=== PATIENT | female | born 1955 | race Caucasian/White ===

== ENCOUNTER 2016-04-30 12:28 | Emergency (ER) | payer BC ==
[2016-04-30 13:30] VITALS: BP 124/60
--- NOTE | 2016-04-30 13:48 | UC ---
Throat Pain/Nasal Lance HPI - HPI Summary HPI Summary: sick for 6 days with sore throat body aches, cough--grandson had strep, mother is on chemo - History of Current Complaint Chief Complaint: UCRespiratory Stated Complaint: SORE THROAT Time Seen by Provider: 04/30/16 13:24 Hx Obtained From: Patient Hx Last Menstrual Period: n/a ?: No Onset/Duration: Sudden Onset, Lasting Days - 6, Still Present Severity: Moderate Pain Intensity: 5 Pain Scale Used: 0-10 Numeric Cough: Nonproductive Associated Signs & Symptoms: Positive: Sinus Discomfort - Allergies/Home Medications Allergies/Adverse Reactions: Allergies Allergy/AdvReac Type Severity Reaction Status Date / Time Tramadol Allergy Severe seizures Verified 04/30/16 13:30 Latex Allergy Unknown Verified 04/30/16 13:30 Reaction Details PMH/Surg Hx/FS Hx/Imm Hx Previously Healthy: No Endocrine History Of: Denies: Diabetes, Thyroid Disease Cardiovascular History Of: Denies: Cardiac Disorders, Hypertension Respiratory History Of: Reports: COPD, Asthma GI/ History Of: Denies: Ulcer - Surgical History Surgical History: Yes Surgery Procedure, Year, and Place: appy. partial hysterectomy. umbilical hernia 1989 - Family History Known Family History: Positive: Other - diverticulitis Family History: cancer, diverticulitis - Social History Occupation: Retired Lives: Alone Alcohol Use: None Substance Use Type: None Smoking Status (MU): Light Every Day Tobacco Smoker Type: Cigarettes Amount Used/How Often: 1/4-1/2 PPD Length of Time of Smoking/Using Tobacco: 41 Years Have You Smoked in the Last Year: Yes Household Exposure Type: Cigarettes - Immunization History Most Recent Influenza Vaccination: [id number] Most Recent Tetanus Shot: unknown Review of Systems Constitutional: Negative Skin: Negative Eyes: Negative ENT: Sore Throat, Nasal Discharge Respiratory: Negative Cardiovascular: Negative Gastrointestinal: Negative Genitourinary: Negative Motor: Negative Neurovascular: Negative Musculoskeletal: Negative Neurological: Negative Psychological: Negative All Other Systems Reviewed And Are Negative: Yes Physical Exam Triage Information Reviewed: Yes Appearance: Well-Appearing, No Pain Distress, Well-Nourished Vital Signs: Initial Vital Signs Temp 98.9 F 04/30/16 13:25 Pulse 77 04/30/16 13:25 Resp 16 04/30/16 13:25 BP 124/60 04/30/16 13:25 Pulse Ox 95 04/30/16 13:25 Eye Exam: Normal Eyes: Positive: Conjunctiva Clear ENT Exam: Normal ENT: Positive: Normal ENT inspection, Hearing grossly normal, Pharyngeal erythema, Nasal congestion, Nasal drainage, TMs normal. Negative: Tonsillar swelling, Tonsillar exudate Dental Exam: Normal Neck exam: Normal Neck: Positive: Supple, Nontender, Enlarged Nodes @ - anterior cervical Respiratory Exam: Normal Respiratory: Positive: Chest non-tender, Lungs clear, Normal breath sounds, No respiratory distress, No accessory muscle use Cardiovascular Exam: Normal Cardiovascular: Positive: RRR, No Murmur, Pulses Normal, Brisk Capillary Refill Musculoskeletal Exam: Normal Musculoskeletal: Positive: Strength Intact, ROM Intact, No Edema Neurological Exam: Normal Neurological: Positive: Alert, Muscle Tone Normal Psychological Exam: Normal Skin Exam: Normal Diagnostics - Laboratory Diagnostic Studies Completed/Ordered: RST (-), Influenza A/B(-) Throat Pain/Nasal Course/Dx - Course Assessment/Plan: zithromax, nicotine cesation information, otc treatment for sx management folow with pcp - Differential Dx/Diagnosis Differential Diagnosis/HQI/PQRI: Influenza, Pharyngitis, Sinusitis, URI Provider Diagnoses: Bronchitis, URI Discharge - Discharge Plan Condition: Stable Disposition: HOME Prescriptions: Azithromycin TAB* [Zithromax TAB (Z-LISA) 250 mg #6 tabs] 2 tab PO .TODAY, THEN 1 DAILY #1 lisa Patient Education Materials: Acetaminophen (By mouth), Guaifenesin (By mouth), Upper Respiratory Infection (ED), Viral Syndrome (ED) Referrals: Shiv Chen PA [Primary Care Provider] - If Needed
== END 2016-04-30 14:19 | disposition home or self-care (01) ==
LOC: UCCORT 12:28
DX: J40 Bronchitis, not specified as acute or chronic (principal); J06.9 Acute upper respiratory infection, unspecified; J44.9 Chronic obstructive pulmonary disease, unspecified; J45.998 Other asthma; F17.210 Nicotine dependence, cigarettes, uncomplicated; Z88.5 Allergy status to narcotic agent; Z91.040 Latex allergy status
CPT/HCPCS: 87502; 87651; 99211; G0463

== ENCOUNTER 2016-10-13 19:18 | Emergency (ER) | payer BC ==
--- NOTE | 2016-10-13 19:19 | UC ---
Abdominal Pain Female HPI - HPI Summary HPI Summary: 61 YEAR OLD FEMALE PRESENTS WITH SEVERE LLQ PAIN. I WILL SEND HER TO THE ER TO RULE OUT DIVERTICULITIS. - History of Current Complaint Stated Complaint: LEFT SIDE PAIN Time Seen by Provider: 10/13/16 19:19 Hx Obtained From: Patient Hx Last Menstrual Period: n/a Onset/Duration: Lasting Days Severity Initially: Moderate Severity Currently: Moderate Pain Scale Used: 0-10 Numeric - 8 Location: Discrete At: LLQ Radiates to: Flank Character: Aching, Sharp, Tearing Allergies/Adverse Reactions: Allergies Allergy/AdvReac Type Severity Reaction Status Date / Time Tramadol Allergy Severe seizures Verified 10/13/16 19:28 Latex Allergy Unknown Verified 10/13/16 19:28 Reaction Details Home Medications: Home Medications Ibuprofen TAB* [Advil TAB*] 800 mg PO Q6H PRN 10/13/16 [History Confirmed ] PMH/Surg Hx/FS Hx/Imm Hx Previously Healthy: Yes - Surgical History Surgical History: Yes Surgery Procedure, Year, and Place: appy. partial hysterectomy. umbilical hernia 1989 - Family History Known Family History: Positive: Other - diverticulitis Family History: cancer, diverticulitis - Social History Alcohol Use: None Substance Use Type: None Smoking Status (MU): Light Every Day Tobacco Smoker Type: Cigarettes Amount Used/How Often: 1/4-1/2 PPD Length of Time of Smoking/Using Tobacco: 41 Years Have You Smoked in the Last Year: Yes Household Exposure Type: Cigarettes - Immunization History Most Recent Influenza Vaccination: [id number] Most Recent Tetanus Shot: unknown Review of Systems Constitutional: Negative Skin: Negative Eyes: Negative ENT: Negative Respiratory: Negative Cardiovascular: Negative Gastrointestinal: Abdominal Pain Genitourinary: Negative Motor: Negative Neurovascular: Negative Musculoskeletal: Negative Neurological: Negative Psychological: Negative All Other Systems Reviewed And Are Negative: Yes Physical Exam Triage Information Reviewed: Yes Eye Exam: Normal ENT Exam: Normal Dental Exam: Normal Neck exam: Normal Neck: Positive: 1 Respiratory Exam: Normal Cardiovascular Exam: Normal Abdomen Description: Positive: Guarding, Other: - LLQ PAIN Musculoskeletal Exam: Normal Neurological Exam: Normal Psychological Exam: Normal Skin Exam: Normal Abd Pain Female Course/Dx - Differential Dx/Diagnosis Provider Diagnoses: LLQ ABDOMINAL PAIN Discharge - Discharge Plan Condition: Stable Disposition: HOME Patient Education Materials: Diverticulitis (ED) Referrals: Shiv Chen PA [Primary Care Provider] - Additional Instructions: PLEASE GO TO ER TO RULE OUT DIVERTICULITIS.
[2016-10-13 19:37] VITALS: BP 158/87
== END 2016-10-13 19:36 | disposition home or self-care (01) ==
LOC: UCCORT 19:18
DX: R10.32 Left lower quadrant pain (principal); Z90.711 Acquired absence of uterus with remaining cervical stump; Z88.5 Allergy status to narcotic agent; Z91.040 Latex allergy status; F17.210 Nicotine dependence, cigarettes, uncomplicated
CPT/HCPCS: 99212; G0463

== ENCOUNTER 2016-12-21 09:02 | Emergency (ER) | payer BC ==
[2016-12-21 10:01] VITALS: BP 126/71
--- NOTE | 2016-12-21 10:29 | UC ---
Throat Pain/Nasal Lance HPI - HPI Summary HPI Summary: Pt presents with c/o sore throat, cough, nasal congestion and sinus pressure X 1 week. - History of Current Complaint Chief Complaint: UCRespiratory Stated Complaint: COUGH,SORE THROAT Hx Obtained From: Patient Hx Last Menstrual Period: n/a ?: No Onset/Duration: Gradual Onset Severity: Mild Cough: Nonproductive Associated Signs & Symptoms: Positive: Sinus Discomfort - Allergies/Home Medications Allergies/Adverse Reactions: Allergies Allergy/AdvReac Type Severity Reaction Status Date / Time Tramadol Allergy Severe seizures Verified 12/21/16 10:01 Latex Allergy Unknown Verified 12/21/16 10:01 Reaction Details Home Medications: Home Medications Amitriptyline TAB* [Elavil TAB*] 50 mg PO BEDTIME 12/21/16 [History Confirmed ] PMH/Surg Hx/FS Hx/Imm Hx Previously Healthy: Yes - Surgical History Surgical History: Yes Surgery Procedure, Year, and Place: appy. partial hysterectomy. umbilical hernia 1989 - Family History Known Family History: Positive: Other - diverticulitis Family History: cancer, diverticulitis - Social History Occupation: Retired Lives: With Family Alcohol Use: None Substance Use Type: None Smoking Status (MU): Light Every Day Tobacco Smoker Type: Cigarettes Amount Used/How Often: less than 10 cigs a day Length of Time of Smoking/Using Tobacco: started about age 21 Have You Smoked in the Last Year: Yes Household Exposure Type: Cigarettes - Immunization History Most Recent Influenza Vaccination: [id number] Most Recent Tetanus Shot: unknown Review of Systems Constitutional: Chills Skin: Negative Eyes: Negative ENT: Sore Throat, Sinus Congestion, Sinus Pain/Tenderness, Other - nasal congestion Respiratory: Cough Cardiovascular: Negative Gastrointestinal: Negative Genitourinary: Negative Motor: Negative Neurovascular: Negative Musculoskeletal: Negative Neurological: Negative Psychological: Negative Is Patient Immunocompromised?: No All Other Systems Reviewed And Are Negative: Yes Physical Exam Triage Information Reviewed: Yes Appearance: Ill-Appearing - mild Vital Signs: Initial Vital Signs Temp 98.6 F 12/21/16 09:57 Pulse 90 12/21/16 09:57 Resp 14 12/21/16 09:57 BP 126/71 12/21/16 09:57 Pulse Ox 99 12/21/16 09:57 Vital Signs Reviewed: Yes Eye Exam: Normal ENT Exam: Other ENT: Positive: Nasal congestion, Other: - sinus tenderness Dental Exam: Normal Neck exam: Normal Respiratory Exam: Normal Cardiovascular Exam: Normal Musculoskeletal Exam: Normal Neurological Exam: Normal Psychological Exam: Normal Skin Exam: Normal Throat Pain/Nasal Course/Dx - Differential Dx/Diagnosis Differential Diagnosis/HQI/PQRI: Influenza, Sinusitis, URI Provider Diagnoses: bronchitis Discharge - Discharge Plan Condition: Stable Disposition: HOME Prescriptions: Amoxicillin PO (*) [Amoxicillin 500 MG CAP*] 500 mg PO Q12H #14 cap Benzonatate CAP* [Tessalon 100 MG CAP*] 100 mg PO Q8H #21 cap predniSONE TAB* [Deltasone TAB*] 20 mg PO DAILY #4 tab Patient Education Materials: Acute Bronchitis (ED) Referrals: Shiv Chen PA [Primary Care Provider] - If Needed
== END 2016-12-21 10:45 | disposition home or self-care (01) ==
LOC: UCCORT 09:02
DX: J40 Bronchitis, not specified as acute or chronic (principal); F17.210 Nicotine dependence, cigarettes, uncomplicated
CPT/HCPCS: 87651; 99212; G0463

== ENCOUNTER 2017-02-08 09:27 | Emergency (ER) | payer BC ==
[2017-02-08 10:14] VITALS: BP 152/98
--- NOTE | 2017-02-08 11:16 | UC ---
Throat Pain/Nasal Lance HPI - HPI Summary HPI Summary: sore throat x 3 days cough x 3 weeks, cough is dry and harsh, + chest congestion, no fever, no chills + wheezing, + sob - History of Current Complaint Chief Complaint: UCRespiratory Stated Complaint: COUGH, ST Time Seen by Provider: 02/08/17 10:53 Hx Obtained From: Patient Hx Last Menstrual Period: n/a Onset/Duration: Gradual Onset, Lasting Days - 3, Still Present Severity: Moderate Cough: Nonproductive Associated Signs & Symptoms: Positive: Wheezing, Nasal Discharge. Negative: Dysphagia, Hoarseness, Sinus Discomfort, Fever, Vomiting, Rash - Allergies/Home Medications Allergies/Adverse Reactions: Allergies Allergy/AdvReac Type Severity Reaction Status Date / Time Tramadol Allergy Severe seizures Verified 02/08/17 10:02 Latex Allergy Unknown Verified 02/08/17 10:02 Reaction Details PMH/Surg Hx/FS Hx/Imm Hx Respiratory History: COPD - Surgical History Surgical History: Yes Surgery Procedure, Year, and Place: appy. partial hysterectomy. umbilical hernia 1989 - Family History Known Family History: Positive: Other - diverticulitis Negative: Diabetes Family History: cancer, diverticulitis - Social History Alcohol Use: None Substance Use Type: None Smoking Status (MU): Light Every Day Tobacco Smoker Type: Cigarettes Amount Used/How Often: less than 10 cigs a day Length of Time of Smoking/Using Tobacco: started about age 21 Have You Smoked in the Last Year: Yes Household Exposure Type: Cigarettes - Immunization History Most Recent Influenza Vaccination: 2017 Most Recent Tetanus Shot: unknown Review of Systems Constitutional: Negative Skin: Negative Eyes: Negative ENT: Sore Throat Respiratory: Cough Cardiovascular: Negative Is Patient Immunocompromised?: No All Other Systems Reviewed And Are Negative: Yes Physical Exam Triage Information Reviewed: Yes Appearance: Well-Appearing, No Pain Distress, Well-Nourished Vital Signs: Initial Vital Signs Temp 98.1 F 02/08/17 10:05 Pulse 83 02/08/17 10:05 Resp 18 02/08/17 10:05 BP 152/98 02/08/17 10:05 Pulse Ox 97 02/08/17 10:05 Vital Signs Reviewed: Yes Eyes: Positive: Conjunctiva Clear ENT: Positive: Normal ENT inspection, Hearing grossly normal, Pharynx normal, Nasal congestion Neck: Positive: Supple, Nontender, No Lymphadenopathy Respiratory: Positive: Chest non-tender, Lungs clear, Normal breath sounds Cardiovascular: Positive: RRR Abdominal Exam: Normal Throat Pain/Nasal Course/Dx - Differential Dx/Diagnosis Provider Diagnoses: bronchitis Discharge - Discharge Plan Condition: Stable Disposition: HOME Prescriptions: Azithromycin TAB* [Zithromax TAB (Z-LISA) 250 mg #6 tabs] 2 tab PO .TODAY, THEN 1 DAILY #1 lisa Guaifenesin-Codeine [Cheratussin AC] 10 ml PO Q8H PRN #120 ml MDD 30 ml PRN Reason: Cough Patient Education Materials: Acute Bronchitis (ED) Referrals: GERRI Angelo [Primary Care Provider] - 7 Days
== END 2017-02-08 11:25 | disposition home or self-care (01) ==
LOC: UCCORT 09:27
DX: J40 Bronchitis, not specified as acute or chronic (principal); F17.210 Nicotine dependence, cigarettes, uncomplicated
CPT/HCPCS: 99212; G0463

== ENCOUNTER 2017-08-01 15:38 | Emergency (ER) | payer BC ==
[2017-08-01 17:48] VITALS: BP 123/81
--- NOTE | 2017-08-01 18:29 | UC ---
Abdominal Pain Female HPI - HPI Summary HPI Summary: 62 yo female has had severe lower abd cramping x 2 weeks or more this has been associated with a change in bowel movements she has also had headaches that occur at night while laying down resolve by morning some nausea felt feverish and chills past 24 hours had two episodes of vomiting today - History of Current Complaint Chief Complaint: UCGI Stated Complaint: HEADACHE, VOMITING Time Seen by Provider: 08/01/17 18:04 Hx Obtained From: Patient Hx Last Menstrual Period: n/a Onset/Duration: Gradual Onset, Lasting Weeks Timing: Constant Severity Initially: Severe Severity Currently: Mild Pain Intensity: 3 Pain Scale Used: 0-10 Numeric Location: Other - lower abd Radiates: No Character: Cramping Aggravating Factor(s): Nothing Alleviating Factor(s): Nothing Associated Signs and Symptoms: Positive: Fever - rosy, Constipation, Nausea, Vomiting - today only Allergies/Adverse Reactions: Allergies Allergy/AdvReac Type Severity Reaction Status Date / Time MS Tramadol [Tramadol] Allergy Severe seizures Verified 02/08/17 10:02 MS Latex [Latex] Allergy Unknown Verified 02/08/17 10:02 Reaction Details Home Medications: Home Medications Aspirin TAB* [Aspirin 325 MG TAB*] 2 tab PO BEDTIME 08/01/17 [History Confirmed 08/01/17] Ibuprofen TAB* [Motrin TAB* 600 MG] 600 mg PO ONCE 08/01/17 [History Confirmed 08/01/17] Meloxicam(NF) [Mobic(NF)] 15 mg PO DAILY 08/01/17 [History Confirmed 08/01/17] Spiriva Inhaler DEVICE* [Tiotropium Inhaler DEVICE*] 1 inh DAILY 08/01/17 [ History Confirmed 08/01/17] PMH/Surg Hx/FS Hx/Imm Hx Previously Healthy: Yes Cardiovascular History: Hypertension Respiratory History: Asthma Neurological History: Migraine - Surgical History Surgical History: Yes Surgery Procedure, Year, and Place: appy. partial hysterectomy. umbilical hernia 1989 - Family History Known Family History: Positive: Hypertension, Other - diverticulitis Negative: Diabetes Family History: cancer, diverticulitis - Social History Alcohol Use: None Substance Use Type: None Smoking Status (MU): Heavy Every Day Tobacco Smoker Type: Cigarettes Amount Used/How Often: 1 ppd Length of Time of Smoking/Using Tobacco: started about age 21 Have You Smoked in the Last Year: Yes Household Exposure Type: Cigarettes - Immunization History Most Recent Influenza Vaccination: 2017 Most Recent Tetanus Shot: unknown Review of Systems Constitutional: Fever - rosy today, Chills - yesterday, Fatigue Skin: Negative Eyes: Negative ENT: Negative Respiratory: Negative Cardiovascular: Negative Gastrointestinal: Abdominal Pain, Vomiting - x 2 today, Nausea Genitourinary: Negative Motor: Negative Neurovascular: Negative Musculoskeletal: Negative Neurological: Headache Psychological: Negative Is Patient Immunocompromised?: No All Other Systems Reviewed And Are Negative: Yes Physical Exam Triage Information Reviewed: Yes Appearance: Well-Appearing, No Pain Distress, Well-Nourished Vital Signs: Initial Vital Signs Temp 100.2 F 08/01/17 17:40 Pulse 72 08/01/17 17:40 Resp 16 08/01/17 17:40 BP 123/81 08/01/17 17:40 Pulse Ox 99 08/01/17 17:40 Vital Signs Reviewed: Yes Eyes: Positive: Conjunctiva Clear ENT: Positive: Pharynx normal, Uvula midline. Negative: Nasal congestion, Nasal drainage, Trismus, Muffled voice, Dental tenderness Neck: Positive: Supple, Nontender, No Lymphadenopathy Respiratory: Positive: Lungs clear, Normal breath sounds, No respiratory distress Cardiovascular: Positive: RRR, No Murmur Musculoskeletal: Positive: ROM Intact, No Edema Neurological: Positive: Alert Psychological Exam: Normal Skin Exam: Normal Diagnostics - Laboratory Diagnostic Studies Completed/Ordered: ua +1 rbc - Radiology No standard instances Xray Interpretation: No Acute Changes Radiology Interpretation Completed By: Radiologist Abd Pain Female Course/Dx - Differential Dx/Diagnosis Provider Diagnoses: abdominal pain of uncertain etiology. headache of uncertain cause Discharge - Sign-Out/Discharge Documenting (check all that apply): Discharge/Admit/Transfer - Discharge Plan Condition: Stable Disposition: HOME Prescriptions: HYDROcodone/ACETAMIN 5-325 MG* [[place] 5-325 TAB*] 1 tab PO Q4H PRN #10 tab MDD 2 PRN Reason: Headache Patient Education Materials: Acute Headache (ED), Acute Abdominal Pain (DC) Referrals: Emily Mackey MD [Primary Care Provider] - As Soon As Possible Additional Instructions: STOP MOTRIN (IBUPROFEN) to er for new or worsening symptoms blood work pending see your MD in 1-2 days for recheck - Billing Disposition and Condition Condition: STABLE Disposition: Home
--- NOTE | 2017-08-01 19:18 | RAD ---
Indication: Crampy abdominal pain. CT of the abdomen and pelvis was performed without oral or IV contrast administration. Coronal and sagittal reconstructed images were obtained. The lung bases demonstrate no pleural fluid, nodules or masses. Heart is of normal size without evidence of pericardial effusion. The liver is normal in size. No focal lesions or intrahepatic duct dilatation is noted. The gallbladder demonstrates no calcified gallstones, pericholecystic fluid or wall thickening and appears to be partially contracted. Spleen is normal in size. The pancreas demonstrates no mass or pancreatic ductal dictation. The common duct is not dilated. No adrenal lesions are noted. The kidneys demonstrate no evidence of hydronephrosis. Cortical cyst is noted in the upper pole of the left kidney measuring up to 3.2 cm. Aorta demonstrates no evidence of aneurysmal dilatation. No retroperitoneal lymphadenopathy is noted. CT of the pelvis demonstrates no retroperitoneal or pelvic adenopathy. No dilated loops of bowel are noted. The urinary bladder is otherwise unremarkable. No hernias are noted. The visualized bony structures are grossly unremarkable. IMPRESSION: No evidence of obstructive uropathy is noted
[2017-08-01] MEDS ORDERED: HYDROcodone/ACETAMIN 5-325 MG* 1 TAB PO ONE (19:34)
[2017-08-02 11:18] LABS: ABS Basophils 0 10^3/ul (0-0.2); ABS Eosinophils 0.2 10^3/ul (0-0.6); ABS Lymphocytes 3.6 10^3/ul (1.0-4.8); ABS Monocytes 0.9 10^3/ul (0-0.8); ABS Neutrophils 6.6 10^3/ul (1.5-7.7); ABS Nucleated RBC 0 10^3/ul; Eosinophil % 1.8 % (0-6); Hematocrit 42 % (35-47); Hemoglobin 13.9 g/dl (12.0-16.0); Mean Corpuscular HGB Conc 33 g/dl (31-36); Mean Corpuscular Hemoglobin 30 pg (27-31); Mean Corpuscular Volume 91 fL (80-97); Mean Platelet Volume 10.3 um3 (7.4-10.4); Nucleated Red Blood Cells % 0.1; Platelet Count 209 10^3/ul (150-450); Red Blood Count 4.67 10^6/ul (4.0-5.4); Red Cell Distribution Width 14 % (10.5-15); White Blood Count 11.4 10^3/ul (3.5-10.8)
== END 2017-08-01 19:54 | disposition home or self-care (01) ==
LOC: UCCORT 15:38
DX: R10.30 Lower abdominal pain, unspecified (principal); R51 Headache; Z88.6 Allergy status to analgesic agent; Z91.040 Latex allergy status; I10 Essential (primary) hypertension; J45.909 Unspecified asthma, uncomplicated; G43.909 Migraine, unspecified, not intractable, without status migrainosus; F17.210 Nicotine dependence, cigarettes, uncomplicated
CPT/HCPCS: 36415; 74176; 81003; 85025; 85652; 99212; G0463

== ENCOUNTER 2018-08-27 16:25 | Emergency (ER) | payer BC ==
[2018-08-27 17:14] VITALS: BP 143/77
--- NOTE | 2018-08-27 17:56 | UC ---
General HPI - HPI Summary HPI Summary: Per fish culturist: "RIGHT EAR PAIN FOR ABOUT OVER A WEEK. YESTERDAY SHE FELT VERY DIZZY AND THOUGHT SHE WAS GOING TO FAINT, FELT SOB AND HAD BLURRED VISION, HANDS FELT TIGHT AND TINGLY. FATIUGE. HEADACHES ON AND OFF ESPECIALLY AT NIGHT. PT FINISHED A COURSE OF ANTBIOTIC YESTERDAY FOR STREP THROAT. NAUSEA ON AND OFF. " -here w/ her -mear syncope yeterday. she felt weak as if she was going to pass out and got herself to the ground and tried to crawl to get her husbands attention. she sent their 3 yr old grandson out to get . She admits to me that she has had mid-epigatsric chest pains. none today. last > 5 mins but < 10. resolve on it's own. CP is assoc w/ SOB. -CP sharp and dull - hard to describe. felt like heartburn mid epigastrum -b/l hands went numb yetserday. it was assoc w/ SOB but unsureif CP occured then as well. -no slurred speech. no droopy smile. -no personal hh/o heart , CVA, DM, HTN -sister w/ CVAs -quit smoking 13 d ago. -denies room spinning dizziness, no sx assoc w/ rolling over in bed or turning head suddenly. -+ memory loss worsening (may be assoc w/ topamax) - History of Current Complaint Chief Complaint: UCGeneralIllness Stated Complaint: RT EAR COMPLAINT,BLURRY VISION,NAUSEA, WEAKNESS Time Seen by Provider: 08/27/18 17:45 Hx Last Menstrual Period: n/a Pain Intensity: 0 - Allergy/Home Medications Allergies/Adverse Reactions: Allergies Allergy/AdvReac Type Severity Reaction Status Date / Time latex Allergy Unknown Unknown Verified 08/27/18 16:42 Reaction Details tramadol Allergy Unknown seizures Verified 08/27/18 16:42 Home Medications: Home Medications Aspirin 81 mg CHEW TAB* 81 mg PO DAILY 08/27/18 [History Confirmed 08/27/18] Atorvastatin* [Lipitor 10 MG*] 10 mg PO DAILY 08/27/18 [History Confirmed ] Naproxen [Naproxen 500 mg tab] 500 mg PO 08/27/18 [History] PMH/Surg Hx/FS Hx/Imm Hx Previously Healthy: Yes Endocrine History: Dyslipidemia - Surgical History Surgical History: Yes Surgery Procedure, Year, and Place: appy. partial hysterectomy. umbilical hernia 1989 - Family History Known Family History: Positive: Hypertension, Other - diverticulitis, sister w/ CVAs Negative: Diabetes Family History: cancer, diverticulitis - Social History Alcohol Use: Rare Substance Use Type: None Smoking Status (MU): Former Smoker Type: Cigarettes Amount Used/How Often: 1 ppd Length of Time of Smoking/Using Tobacco: started about age 21 Have You Smoked in the Last Year: Yes When Did the Patient Quit Smoking/Using Tobacco: TWO WEEKS AGO Household Exposure Type: Cigarettes - Immunization History Most Recent Influenza Vaccination: 2017 Most Recent Tetanus Shot: unknown Review of Systems All Other Systems Reviewed And Are Negative: Yes Constitutional: Positive: Fatigue Skin: Positive: Negative. Negative: Rash Eyes: Positive: Blurred Vision. Negative: Diplopia ENT: Positive: Ear Ache - rt - went to PCP 2 wks ago and was told it looked fine. Respiratory: Positive: Shortness Of Breath Cardiovascular: Positive: Chest Pain Gastrointestinal: Positive: Negative Genitourinary: Positive: Negative Motor: Positive: Weakness Neurovascular: Positive: Negative Musculoskeletal: Positive: Negative Neurological: Positive: Weakness, Paresthesia, Numbness Psychological: Positive: Negative Is Patient Immunocompromised?: No Physical Exam Triage Information Reviewed: Yes Appearance: Well-Appearing, No Pain Distress, Well-Nourished Vital Signs: Initial Vital Signs Temp 99 F 08/27/18 16:49 Pulse 70 08/27/18 16:49 Resp 20 08/27/18 16:49 BP 143/77 08/27/18 16:49 Pulse Ox 99 08/27/18 16:49 Eye Exam: Normal ENT Exam: Normal ENT: Positive: TMs normal, Uvula midline. Negative: Nasal congestion, Nasal drainage, TM bulging, TM dull, TM red, Hoarse voice, Sinus tenderness Neck exam: Normal Neck: Positive: Supple, Nontender, No Lymphadenopathy Respiratory Exam: Normal Respiratory: Positive: Chest non-tender, Lungs clear, Normal breath sounds, No respiratory distress, No accessory muscle use. Negative: Crackles, Rhonchi, Stridor, Wheezing Cardiovascular Exam: Normal Cardiovascular: Positive: RRR, No Murmur, Pulses Normal, Brisk Capillary Refill Abdominal Exam: Normal Abdomen Description: Positive: Nontender, Soft Bowel Sounds: Positive: Present Musculoskeletal Exam: Normal Neurological Exam: Normal Psychological Exam: Normal Skin Exam: Normal Course/Dx - Course Course Of Treatment: -63 yr old female w/ lipids w/ smoking hx (quit 2 wks ago) w/ 2-3 wks sx of progressing lightheadedness/near syncope, chest pain assoc w/ SOB and parasthesisa in hands who needs further evaluation. Agrees to go to ER. they are reliable and they reassure me they will go dirtectly to [place] (nearest ER in emergency situation) but decline ambulance trx understanding their risks. -I have told them to report chest pain and near syncope upon arrival to ER. - Differential Dx - Multi-Symptom Differential Diagnoses: Cardiac Ischemia, Other - CVA - Diagnoses Provider Diagnosis: Near syncope, Chest pain - Physician Notifications Discussed Patient Care With: Cierra iEd NP [facility] ER at 18:12 who accepts pt after explainat Discharge - Sign-Out/Discharge Documenting (check all that apply): Patient Departure All imaging exams completed and their final reports reviewed: No Studies - Discharge Plan Condition: Fair Disposition: TRANS HIGHER LVL OF CARE FAC Referrals: Shiv Chen PA [Primary Care Provider] - Additional Instructions: Please make sure to go directly to the [place] ER for evaluation. Do not stop anywhere. Do not eat or drink anything until you are cleared to do so. - Billing Disposition and Condition Condition: FAIR Disposition: Trans Higher Lvl of Care Fac
[2018-08-27] MEDS ORDERED: Aspirin 81 mg CHEW TAB* 81 MG TAB.CHEW PO ONE (18:05)
== END 2018-08-27 18:14 | disposition short-term general hospital (02) ==
LOC: UCCORT 16:25
DX: R55 Syncope and collapse (principal); R07.9 Chest pain, unspecified; E78.5 Hyperlipidemia, unspecified; Z87.891 Personal history of nicotine dependence
CPT/HCPCS: 93005; 99212; A9270-GY; G0463

== ENCOUNTER 2018-12-27 08:24 | Emergency (ER) | payer BC ==
[2018-12-27 08:44] VITALS: BP 135/73
--- NOTE | 2018-12-27 09:22 | ED ---
Respiratory - HPI Summary HPI Summary: 63 yr old with history of smoking, presents here with the complaint of coughing for over a month, worse at night and when lays flat. The patient has some post nasal drip. She has a productive cough. She is concerned she has pneumonia as others have pneumonia as well. She denies SOB. She complains of persistent sore throat. She has no other complaints. - History of Current Complaint Chief Complaint: UCGeneralIllness Stated Complaint: COUGH/ST Time Seen by Provider: 12/27/18 08:55 Pain Intensity: 8 - Allergy/Home Medications Allergies/Adverse Reactions: Allergies Allergy/AdvReac Type Severity Reaction Status Date / Time latex Allergy Unknown Unknown Verified 12/27/18 08:44 Reaction Details tramadol Allergy Unknown seizures Verified 12/27/18 08:44 PMH/Surg Hx/FS Hx/Imm Hx Endocrine/Hematology History: Denies: Hx Diabetes, Hx Thyroid Disease Cardiovascular History: Denies: Hx Hypertension Respiratory History: Reports: Hx Asthma, Hx Chronic Obstructive Pulmonary Disease (COPD) GI History: Denies: Hx Ulcer - Surgical History Surgery Procedure, Year, and Place: appy. partial hysterectomy. umbilical hernia 1989 Infectious Disease History: No Infectious Disease History: Denies: Hx Clostridium Difficile, Hx Hepatitis, Hx Human Immunodeficiency Virus (HIV), Hx of Known/Suspected MRSA, Hx Shingles, Hx Tuberculosis, Hx Known/ Suspected VRE, Hx Known/Suspected VRSA, History Other Infectious Disease, Traveled Outside the [place] in Last 30 Days - Family History Known Family History: Positive: Hypertension, Other - diverticulitis, sister w/ CVAs Negative: Diabetes Family History: cancer, diverticulitis - Social History Occupation: Employed Full-time Alcohol Use: None Substance Use Type: Reports: None Smoking Status (MU): Light Every Day Tobacco Smoker Type: Cigarettes Amount Used/How Often: <1ppd Length of Time of Smoking/Using Tobacco: started about age 21 Have You Smoked in the Last Year: Yes Review of Systems Constitutional: Negative Positive: Sore Throat, Nasal Discharge Positive: Cough All Other Systems Reviewed And Are Negative: Yes Physical Exam Triage Information Reviewed: Yes Vital Signs On Initial Exam: Initial Vitals Temp Pulse Resp BP Pulse Ox 98.3 F 66 18 135/73 98 12/27/18 08:34 12/27/18 08:34 12/27/18 08:34 12/27/18 08:34 12/27/18 08:34 Vital Signs Reviewed: Yes Appearance: Positive: Well-Appearing, No Pain Distress Skin: Positive: Warm, Skin Color Reflects Adequate Perfusion Head/Face: Positive: Normal Head/Face Inspection Eyes: Positive: EOMI ENT: Positive: Pharyngeal erythema, Nasal congestion, Nasal drainage, TMs normal Neck: Positive: Nontender Respiratory/Lung Sounds: Positive: Clear to Auscultation, Breath Sounds Present Cardiovascular: Positive: RRR. Negative: Murmur Abdomen Description: Negative: Distended Musculoskeletal: Negative: Strength/ROM Intact Neurological: Positive: Sensory/Motor Intact, Alert, Oriented to Person Place, Time, CN Intact II-III, Normal Gait, Speech Normal Psychiatric: Positive: Normal Diagnostics - Vital Signs Vital Signs Temp Pulse Resp BP Pulse Ox 12/27/18 08:34 98.3 F 66 18 135/73 98 - Laboratory Lab Results: Lab Results 12/27/18 Range/Units 09:05 Group A Strep Rapid Negative (Negative) Lab Statement: Any lab studies that have been ordered have been reviewed, and results considered in the medical decision making process. Disposition - Course Course Of Treatment: 63 yr old with negative chest xray. She has post nasal drip with cough worse at night. WIll cover her with Augmentin for bacterial sinusitis. FU with PMD. - Diagnoses Provider Diagnoses: Bacterial sinusitis Discharge ED - Sign-Out/Discharge Documenting (check all that apply): Patient Departure All imaging exams completed and their final reports reviewed: No Studies - Discharge Plan Condition: Good Disposition: HOME Prescriptions: Amoxicillin/Clavulanate TAB* [Augmentin TAB 875*] 875 mg PO BID #20 tab Benzonatate CAP* [Tessalon 100 MG CAP*] 100 mg PO TID PRN #14 cap PRN Reason: Cough predniSONE TAB* [Deltasone 20 MG TAB*] 40 mg PO DAILY #8 tab Patient Education Materials: Sinusitis (ED), Acute Bronchitis (ED) Referrals: Shiv Chen PA [Primary Care Provider] - 2 Days - Billing Disposition and Condition Condition: GOOD Disposition: Home
== END 2018-12-27 09:31 | disposition home or self-care (01) ==
LOC: UCCORT 08:24
DX: J32.9 Chronic sinusitis, unspecified (principal); B96.89 Other specified bacterial agents as the cause of diseases classified elsewhere; J44.9 Chronic obstructive pulmonary disease, unspecified; R05 Cough; J02.9 Acute pharyngitis, unspecified; F17.210 Nicotine dependence, cigarettes, uncomplicated; Z91.040 Latex allergy status; Z88.5 Allergy status to narcotic agent
CPT/HCPCS: 71046; 87651; 99212; G0463

== ENCOUNTER 2019-01-21 10:17 | Emergency (ER) | payer BC ==
--- OUTSIDE RECORDS SUMMARY | 2019-01-21 10:25 | XMS REPORT | Continuity of Care Document ---
:1955 External Reference #:[id number] Author Name Remi Nation M.D. Address [address] [place] [address] Care Team Providers Name Role Phone Charanjit Chen PA - Physician Care Team Information Gravel Weigher [phone] Retail Store Associate Emily Mackey MD - Family Care Team Information Gravel Weigher [phone] Medicine Problems Active Problems Provider Date Chronic obstructive lung disease Remi Nation M.D. Onset: 10/31/2016 Gastroesophageal reflux disease Remi Nation M.D. Onset: 10/31/2016 Kidney stone Remi Natoin M.D. Onset: 10/31/2016 Female stress incontinence Remi Nation M.D. Onset: 10/31/2016 Ureteric stone Remi Nation M.D. Onset: 12/01/2016 Arthralgia of the pelvic region and thigh Alfredo Khoury M.D. Onset: 09/2017 Constipation Pineda Ribeiro MD Onset: 10/11/2017 Benign neoplasm of colon Pineda Ribeiro MD Onset: 10/11/2017 Pile easily reducible Pineda Ribeiro MD Onset: 10/11/2017 Mixed urinary incontinence Remi Nation M.D. Onset: 01/13/2019 Chest pain Onset: 08/15/2016 Radicular pain Onset: 04/05/2015 Cough Onset: 05/12/2015 Sore throat symptom Onset: 05/12/2015 Abdominal pain Onset: 05/12/2015 Dizziness Onset: 08/15/2016 Dysuria Onset: 08/15/2016 Social History Type Date Description Comments Sex Unknown Tobacco Use Start: Unknown Current Cigarette Smoker 5-10 Cigarettes Daily Smokeless Tobacco Never Used Smokeless Tobacco ETOH Use Denies alcohol use Tobacco Use Start: Unknown Patient is a current 10 or less a day smoker, smokes every day Recreational Drug Use Denies Drug Use Smoking Status Reviewed: 09/18/17 Patient is a current 10 or less a day smoker, smokes every day Allergies, Adverse Reactions, Alerts Active Allergies Reaction Severity Comments Date Dog Dander 01/12/2014 Codeine 01/12/2014 Tramadol 01/12/2014 Latex 01/12/2014 Medications Active Medications SIG Qnty Indications Ordering Date Provider Myrbetriq 1 by mouth every 30tabs Chapis, 01/13/2019 50mg day Abhishek Khalil Tablets ER 24HR Lisinopril 1 by mouth every 30tabs I10 Davidenko, 09/12/2018 10mg day Preston Gonzalez M.D., Tablets FACC Naproxen take one tablet 60tabs Quintin, 09/18/2017 500mg by mouth twice a MD Pineda Tablets day Miralax 1 tablespoon with 1020units K59.00 Quintin, 09/18/2017 3350NF Powder large glass of MD Pineda water every day Topiramate 1 tab at hs 120tabs Brodie Posadas MD 08/23/2016 25mg Tablets Topiramate take one tablet Unknown 100mg by mouth once a Tablets day Esomeprazole 1 by mouth every Unknown Magnesium day 40mg Capsules DR Roxanne HFA 1-2 puffs every Unknown 4-6 hours as 108(90Base) mcg/Act needed Aerosol Spiriva Handihaler inhale the Unknown contents of 1 18mcg Capsules capsule via handihaler once daily Lipitor 1 by mouth every Unknown 20mg Tablets day Immunizations Description No Information Available Vital Signs Date Vital Result Comment 01/13/2019 10:22am BP Systolic Sitting Left Arm 121 mmHg BP Diastolic Sitting Left Arm 75 mmHg Body Temperature 99.3 F Heart Rate 84 /min Respiratory Rate 20 /min Height 66 inches 5'6" Weight 175.38 lb BMI (Body Mass Index) 28.3 kg/m2 BSA (Body Surface Area) 1.89 m2 Arbon body weight in kilograms 59 kg O2 % BldC Oximetry 97 % Ra Pain Level 0 09/12/2018 2:02pm BP Systolic Sitting Resting Right Arm 138 mmHg BP Diastolic Sitting Resting Right Arm 90 mmHg Respiratory Rate 16 /min Height 66 inches 5'6" Weight 182.00 lb BMI (Body Mass Index) 29.4 kg/m2 BSA (Body Surface Area) 1.92 m2 Arbon body weight in kilograms 59 kg Results Test Acquired Date Facility Test Result H/L Range Note Basic Metabolic 09/17/2018 [facility] Glucose 104 mg/dL Normal 74-106 [address] [place] [address] [phone] BUN 14 mg/dL Normal 7-18 Creatinine 0.9 mg/dL Normal 0.6-1.3 Glom Filtration Rate, Estimate >60 mL/min >60 If >60 mL/min >60 2 BUN/Creat 15.5 ratio Sodium 143 mmol/L Normal 136-145 Potassium 3.6 mmol/L Normal 3.5-5.1 Chloride 112 mmol/L High 98-107 Carbon Dioxide 26 mmol/L Normal 21-32 Anion Gap 5 mEq/L Low 8-16 Calcium 8.5 mg/dL Normal 8.5-10.1 Laboratory test 09/17/2018 [facility] Magnesium 2.3 mg/dL Normal 1.8-2.4 [address] [place] [address] [phone] 1 I10 2 Note: Persistent reduction for 3 months or more in an eGFR <60 mL/min/1.73 m2 defines CKD. Patients with eGFR values >/=60 mL/min/1.73 m2 may also have CKD if evidence of persistent proteinuria is present. The original MDRD equation for estimated GFR is not valid for patients less than 18 years of age. Additional information may be found at www.kdoqi.org. Procedures Date Code Description Status 10/07/2018 40250 Stress Test Interpre And Report Only Completed 10/07/2018 77452 Stress Test Physician Super Only Completed 10/07/2018 06111 Myocardial Imaging Tomographic Multiple Study AT Rest Completed Or Stress 09/12/2018 98690 EKG-Tracing And Report Completed 09/26/2017 60024063 Colonoscopy Completed 08/13/2014 [id number] Colonoscopy Completed 07/20/2011 [id number] Colonoscopy Completed 06/15/2003 [id number] Colonoscopy Completed Medical Devices Description No Information Available Encounters Type Date Location Provider Dx Diagnosis Office Visit 01/13/2019 10:15a Urology Remi Nation, N39.46 Mixed incontinence Apolinar.Marina N20.0 Calculus of kidney Office Visit 09/12/2018 2:00p Cardiology Office Georgie, I10 Essential ( primary) Bibilyss Yeimy, PA hypertension R06.02 Shortness of breath G47.33 Obstructive sleep apnea (adult) (pediatric) R42 Dizziness and giddiness F17.210 Nicotine dependence, cigarettes, uncomplicated Assessments Date Code Description Provider 01/13/2019 N39.46 Mixed incontinence Remi Nation M.D. 01/13/2019 N20.0 Calculus of kidney Remi Nation M.D. 10/07/2018 R06.02 Shortness of breath Preston Nieto M.D., [facility] 09/12/2018 I10 Essential (primary) hypertension Yandy Jacquess B., PA 09/12/2018 R06.02 Shortness of breath Ynady Jacquess Jovanny., PA 09/12/2018 G47.33 Obstructive sleep apnea (adult) Yandy Jacquess Jovanny., PA (pediatric) 09/12/2018 R42 Dizziness and giddiness Yandy Jacquess Jovanny., PA 09/12/2018 F17.210 Nicotine dependence, cigarettes, Izabella Jacques., PA uncomplicated 08/28/2018 R07.9 Chest pain, unspecified Cadet, OLGA Pal 08/28/2018 R07.9 Chest pain, unspecified Preston Nieto M.D., [facility] 08/28/2018 R55 Syncope and collapse [place] FNP 08/28/2018 R55 Syncope and collapse Preston Nieto M.D., [facility] 08/28/2018 J44.9 Chronic obstructive pulmonary Cadet, OLGA Pal disease, unspecified 08/28/2018 J44.9 Chronic obstructive pulmonary Davidenko, Preston M., M.D., disease, unspecified FACC 08/28/2018 F17.210 Nicotine dependence, cigarettes, CadDemarco luevano, [employer] uncomplicated 08/28/2018 F17.210 Nicotine dependence, cigarettes, Preston Nieto M.D., uncomplicated FACC 08/27/2018 R55 Syncope and collapse Luis Manuel Pierre MD 08/27/2018 R07.9 Chest pain, unspecified Luis Manuel Pierre MD 08/27/2018 J44.9 Chronic obstructive pulmonary Luis Manuel Pierre MD disease, unspecified 08/27/2018 F17.210 Nicotine dependence, cigarettes, Luis Manuel Pierre MD uncomplicated Plan of Treatment Future Appointment(s):02/10/2019 9:00 am - Remi Nation M.D. at [id number] - Remi Nation M.D.N39.46 Mixed incontinenceComments:Discussed with the patient mixed incontinence and will plan to do a pelvic exam at next visit when the patient has a full bladder to assess for stress incontinence. For now we discussed behavioral modifications such as timed voiding and double voiding and limiting coffee intake. We also discussed doing a trial of Myrbetriq to see if we could improve on the urge incontinence. She'll follow-up with me in 3 [id number] Calculus of kidneyComments:This patient has a history of kidney stones and recent CT scan that I reviewed shows left stone. I recommend the patient to come off Topamax if possible as most likely this could be contributing to her kidney stone disease. Functional Status Description No Information Available Mental Status Description No Information Available Referrals Description No Information Available
[2019-01-21 10:40] VITALS: BP 103/67
--- NOTE | 2019-01-21 11:08 | UC ---
Respiratory Complaint HPI - HPI Summary HPI Summary: cough x 4 weeks cough is dry , worse with deep breathing, nothing is making it better was treated for bronchitis with antibiotics/ prednisone about 2 weeks ago not getting better denies any fever, no chills, + pnd, no sob, no wheezing no chest pain , no GERD, no calf pain, no recent travel - History of Current Complaint Chief Complaint: UCRespiratory Stated Complaint: COUGH SORE THROAT URINARY Time Seen by Provider: 01/21/19 10:29 Hx Obtained From: Patient Hx Last Menstrual Period: n/a Onset/Duration: Gradual Onset, Lasting Weeks - 4, Still Present Timing: Constant Severity Initially: Moderate Severity Currently: Moderate Pain Intensity: 8 Character: Cough: Nonproductive Aggravating Factors: Exertion, Deep Breaths Alleviating Factors: Nothing Associated Signs And Symptoms: Negative: Dyspnea, Fever, Chills, Pleuritic Chest Pain, Wheezing, Hemoptysis, Dizziness, Calf Pain, Calf Swelling, Edema, URI, Nasal Congestion, Hoarseness, Sinus Discomfort - Allergies/Home Medications Allergies/Adverse Reactions: Allergies Allergy/AdvReac Type Severity Reaction Status Date / Time latex Allergy Unknown Unknown Verified 01/21/19 10:34 Reaction Details tramadol Allergy Unknown seizures Verified 01/21/19 10:34 Home Medications: Home Medications Bladder Pill "Oval ... Brown" 1 tab PO DAILY 01/21/19 [History Confirmed ] PMH/Surg Hx/FS Hx/Imm Hx - Additional Past Medical History Additional PMH: Dyslipidemia, GERD Respiratory History: COPD, Asthma - Surgical History Surgical History: Yes Surgery Procedure, Year, and Place: appy. partial hysterectomy. umbilical hernia 1989 - Family History Known Family History: Positive: Hypertension, Other - diverticulitis, sister w/ CVAs Negative: Diabetes Family History: cancer, diverticulitis - Social History Alcohol Use: None Substance Use Type: None Smoking Status (MU): Heavy Every Day Tobacco Smoker Type: Cigarettes Amount Used/How Often: ~1/4 PPD Length of Time of Smoking/Using Tobacco: Since Age 21 Have You Smoked in the Last Year: Yes When Did the Patient Quit Smoking/Using Tobacco: TWO WEEKS AGO Household Exposure Type: Cigarettes - Immunization History Most Recent Influenza Vaccination: 2017 Most Recent Tetanus Shot: unknown Review of Systems All Other Systems Reviewed And Are Negative: Yes Constitutional: Positive: Negative. Negative: Fever, Chills, Fatigue Skin: Positive: Negative Eyes: Positive: Negative ENT: Positive: Sore Throat. Negative: Nasal Discharge, Sinus Congestion, Sinus Pain/Tenderness Respiratory: Positive: Cough. Negative: Shortness Of Breath Cardiovascular: Positive: Negative Is Patient Immunocompromised?: No Physical Exam Triage Information Reviewed: Yes Appearance: Well-Appearing, No Pain Distress, Well-Nourished Vital Signs: Initial Vital Signs Temp 98.6 F 01/21/19 10:28 Pulse 74 01/21/19 10:28 Resp 14 01/21/19 10:28 BP 103/67 01/21/19 10:28 Pulse Ox 100 01/21/19 10:28 Vital Signs Reviewed: Yes Eye Exam: Normal Eyes: Positive: Conjunctiva Clear ENT Exam: Normal ENT: Positive: Normal ENT inspection, Hearing grossly normal, Pharynx normal Neck exam: Normal Neck: Positive: Supple, Nontender, No Lymphadenopathy Respiratory: Positive: Chest non-tender, Lungs clear, Normal breath sounds Cardiovascular: Positive: RRR, No Murmur, Pulses Normal Abdominal Exam: Normal Abdomen Description: Positive: Nontender, Soft Bowel Sounds: Positive: Present Musculoskeletal Exam: Normal Skin Exam: Normal Respiratory Course/Dx - Differential Dx/Diagnosis Provider Diagnosis: Bronchitis Discharge ED - Sign-Out/Discharge Documenting (check all that apply): Patient Departure All imaging exams completed and their final reports reviewed: No Studies - Discharge Plan Condition: Stable Disposition: HOME Prescriptions: Fluticasone NASAL SPRAY 50MCG* [Flonase NASAL SPRAY 50MCG*] 2 spray BOTH NARES DAILY #1 btl guaiFENesin/CODIENE 100mg/10mg [Robitussin AC 100Mg/10Mg in 5 ml] 10 ml PO Q8H PRN #120 ml MDD 30 ml PRN Reason: Cough Patient Education Materials: Chronic Cough (ED) Referrals: Shiv Chen PA [Primary Care Provider] - 2 Weeks - Billing Disposition and Condition Condition: STABLE Disposition: Home
[2019-01-21 16:15] LABS: Hepatitis C Antibody Negative (Negative)
== END 2019-01-21 11:13 | disposition home or self-care (01) ==
LOC: UCCORT 10:17
DX: J44.9 Chronic obstructive pulmonary disease, unspecified (principal); J02.9 Acute pharyngitis, unspecified; F17.210 Nicotine dependence, cigarettes, uncomplicated; Z91.040 Latex allergy status; Z88.8 Allergy status to other drugs, medicaments and biological substances
CPT/HCPCS: 36415; 86803; 87651; 99212; G0463

== ENCOUNTER 2019-03-02 07:38 | Emergency (ER) | payer BC, OTHER ==
--- OUTSIDE RECORDS SUMMARY | 2019-03-02 07:47 | XMS REPORT | Continuity of Care Document ---
:1955 External Reference #:[id number] Author Name Remi Nation M.D. Address [address] [facility] [address] [place] [address] Care Team Providers Name Role Phone Charanjit Chen PA - Physician Care Team Information Staff Submarine Warfare Officer [phone] Hadoop Analyst Emily Mackey MD - Family Care Team Information Staff Submarine Warfare Officer Medicine Problems Active Problems Provider Date Chronic obstructive lung disease Remi Nation M.D. Onset: 10/31/2016 Gastroesophageal reflux disease Remi Nation M.D. Onset: 10/31/2016 Kidney stone Remi Nation M.D. Onset: 10/31/2016 Female stress incontinence Remi [...] Use Denies Drug Use Smoking Status Reviewed: 02/05/19 Patient is a current 10 or less [...] every Unknown Magnesium day 40mg Capsules DR Oliveira HFA 1-2 puffs every Unknown 4-6 hours as 108(90Base) mcg/Act needed Aerosol Spiriva Handihaler inhale the Unknown contents of 1 18mcg Capsules capsule via handihaler once daily Lipitor 1 by mouth every Unknown 20mg Tablets day Immunizations Description No Information Available Vital Signs Date Vital Result Comment 02/03/2019 1:25pm BP Systolic 156 mmHg BP Diastolic 95 mmHg Body Temperature 98.3 F Heart Rate 75 /min Respiratory Rate 19 /min Height 66 inches 5'6" Weight 177.00 lb Pain Level 4 catch in her left side BMI (Body Mass Index) 28.6 kg/m2 BSA (Body Surface Area) 1.90 m2 [place] body weight in kilograms 59 kg 01/13/2019 10:22am BP Systolic Sitting Left Arm 121 mmHg BP Diastolic Sitting Left Arm 75 mmHg Body Temperature 99.3 F Heart Rate 84 /min Respiratory Rate 20 /min Height 66 inches 5'6" Weight 175.38 lb Pain Level 0 BMI (Body Mass Index) 28.3 kg/m2 BSA (Body Surface Area) 1.89 m2 [place] body weight in kilograms 59 kg O2 % BldC Oximetry 97 % Ra Results Test Acquired Date Facility Test Result H/L Range Note Urine Dipstick 02/03/2019 [facility] Ua Color yellow Yellow Ua Clarity clear Clear Ua Leuko neg Negative Ua Nitrite neg Negative Ua Urobilinogen 0.2 0.2 - 1.0 E.U./dL Ua Protein neg Negative Ua PH 6.0 Low 6.5-7.5 Ua Blood neg Negative Ua Specific [place] 1.010 1.010-1.030 Ua Ketones neg Negative Ua Bilirubin neg Negative Ua Glucose neg Negative Urine Culture 01/13/2019 [facility] Urine Culture MIXED URETHRAL F 1, [address] <SEE NOTE> [place] [address] [phone] Quantity 10,000 - 50,000 <SEE NOTE> 3 Ua RFX Micro & Culture 01/13/2019 [facility] Urine Color YELLOW Yellow II [address] [place] [address] [phone] Urine Clarity CLEAR Clear Urine Glucose - Dipstick NEGATIVE mg/dL Negative Urine Bilirubin - Dipstick NEGATIVE Negative Urine Ketone NEGATIVE mg/dL Negative Urine Specific [place] 1.015 Normal 1.010-1.030 Urine Blood SMALL Abnormal Negative Urine PH 6.0 Low 6.5-7.5 Urine Protein - Dipstick NEGATIVE mg/dL Negative Urine Urobilinogen - Dipstick 0.2 E.U./dL Normal 0.2-1.0 Urine Nitrite - Dipstick NEGATIVE Negative Urine Leuk Esterase TRACE Abnormal Negative Source: URINE, CLEAN CAT <SEE NOTE> 4 Urine RBC 5-10 rbc/hpf High 0-2 Urine WBC 2-5 wbc/hpf 0-7 Urine Epithelial Cells FEW /lpf None Seen Basic Metabolic Panel 09/17/2018 [facility] Glucose 104 mg/dL Normal 74-106 5 [address] [place] [address] [phone] BUN 14 mg/dL Normal 7-18 Creatinine 0.9 mg/dL Normal 0.6-1.3 Glom Filtration Rate, Estimate >60 mL/min >60 If >60 mL/min >60 6 BUN/Creat 15.5 ratio Sodium 143 mmol/L Normal 136-145 Potassium 3.6 mmol/L Normal 3.5-5.1 Chloride 112 mmol/L High 98-107 Carbon Dioxide 26 mmol/L Normal 21-32 Anion Gap 5 mEq/L Low 8-16 Calcium 8.5 mg/dL Normal 8.5-10.1 Laboratory test 09/17/2018 [facility] Magnesium 2.3 mg/dL Normal 1.8-2.4 finding [address] [place] [address] [phone] 1 N39.0 2 MIXED URETHRAL [place] 3 10,000 - 50,000 CFU/mL 4 URINE, CLEAN CATCH 5 I10 6 Note: Persistent reduction for 3 months or [...] at [email or web address]. Procedures Date Code Description Status 02/03/2019 53472 Cystoscopy Completed 01/13/2019 78624 Measurement Post Voiding Residual Urine By Completed Ultrasound,Non-Imaging 10/07/2018 31233 Stress Test Interpre And Report Only Completed 10/07/2018 63405 Stress Test Physician Super Only Completed 10/07/2018 82744 Myocardial Imaging Tomographic Multiple Study AT Rest Completed Or Stress 09/12/2018 07816 EKG-Tracing And Report Completed 09/26/2017 [id number] Colonoscopy Completed 08/13/2014 [id number] Colonoscopy Completed 07/20/2011 [id number] Colonoscopy Completed 06/15/2003 [id number] Colonoscopy Completed Medical Devices Description No Information Available Encounters Type Date Location Provider Dx Diagnosis Office Visit 02/03/2019 1:15p Urology Remi Nation, N39.46 Mixed incontinence M.DLynn Office Visit 01/13/2019 10:15a Urology ChapisRemi tom, N39.46 Mixed incontinence Apolinar.Marina N20.0 Calculus of kidney Office Visit 09/12/2018 2:00p Cardiology Office Georgie, I10 Essential ( primary) Izabella Gaffney, PA hypertension R06.02 Shortness of breath G47.33 Obstructive sleep apnea (adult) (pediatric) R42 Dizziness and giddiness F17.210 Nicotine dependence, cigarettes, uncomplicated Assessments Date Code Description Provider 02/03/2019 N39.46 Mixed incontinence Remi Nation M.D. 01/13/2019 N39.46 Mixed incontinence Remi Nation M.D. 01/13/2019 N20.0 Calculus of kidney Remi Nation M.D. 10/07/2018 R06.02 Shortness of breath Preston Nieto M.D., [facility] 09/12/2018 I10 Essential (primary) hypertension Izabella Jacques, PA 09/12/2018 R06.02 Shortness of breath Izabella Jacques., PA 09/12/2018 G47.33 Obstructive sleep apnea (adult) Izabella Jacques, PA (pediatric) 09/12/2018 R42 Dizziness and giddiness Izabella Jacques, PA 09/12/2018 F17.210 Nicotine dependence, cigarettes, Yandy Jacquess B., PA uncomplicated 08/28/2018 R07.9 Chest pain, unspecified Cadet, SIN PalP 08/28/2018 R07.9 Chest pain, unspecified Preston Nieto M.D., [facility] 08/28/2018 R55 Syncope and collapse Phu, Demarco MOVIE WRITER 08/28/2018 R55 Syncope and collapse Preston Nieto M.D., [facility] 08/28/2018 J44.9 Chronic obstructive pulmonary Cadet, Demarco, MOVIE WRITER disease, unspecified 08/28/2018 J44.9 Chronic obstructive pulmonary Preston Nieto M.D., disease, unspecified [facility] 08/28/2018 F17.210 Nicotine dependence, cigarettes, Cadet, Demarco, MOVIE WRITER uncomplicated 08/28/2018 F17.210 Nicotine dependence, cigarettes, Preston Nieto M.D., uncomplicated [facility] 08/27/2018 R55 Syncope and collapse Luis Manuel Pierre MD 08/27/2018 R07.9 Chest pain, unspecified Luis Manuel Pierre MD 08/27/2018 J44.9 Chronic obstructive pulmonary Luis Manuel Pierre MD disease, unspecified 08/27/2018 F17.210 Nicotine dependence, cigarettes, Luis Manuel Pierre MD uncomplicated Plan of Treatment No Information Available Functional Status Description No Information Available Mental Status Description No Information Available Referrals Description No Information Available
[2019-03-02 07:55] VITALS: BP 122/89
[2019-03-02] MEDS ORDERED: Ketorolac *IM* INJ* 60 MG/2 ML VIAL IM ONE (08:05)
[2019-03-02] MEDS ORDERED: Amoxicillin PO (*) 500 MG CAP PO ONE (08:05)
[2019-03-02] MEDS ORDERED: DOXYcycline CAP(*) 100 MG PO ONE (08:10)
--- NOTE | 2019-03-02 08:11 | UC ---
Headache HPI - HPI Summary HPI Summary: C/O frontal GAMBLE x 7 days with nausea and photophobia. Sinus headache with chills. Cough and sore throat. H/O allergies. - History Of Current Complaint Chief Complaint: UCRespiratory Stated Complaint: HEADACHE SINUS SORE THROAT COUGH Hx Obtained From: Patient Hx Last Menstrual Period: n/a Onset/Duration: Gradual Onset, Lasting Weeks - 1, Still Present Onset Of Symptoms: Gradual Initially Headache Was: Moderate, Severe Pain Intensity: 7 Timing: Constant Character: Dull, Throbbing, Pressure Location of Headache: Frontal, Occipital Aggravating Factor(s): Bright Lights Allevating Factor(s): Medication - minimal improvement with ibuprofen, Position Change Associated Signs And Symptoms: Positive: Nausea, Sinus Pressure, Fever. Negative: Seizure, Neck Pain, Neck Stiffness, Decreased LOC - Risk Factors SAH Risk Factors: Negative Meningitis Risk Factors: Negative SDH Risk Factors: Negative - Allergies/Home Medications Allergies/Adverse Reactions: Allergies Allergy/AdvReac Type Severity Reaction Status Date / Time latex Allergy Unknown Unknown Verified 03/02/19 07:52 Reaction Details tramadol Allergy Unknown seizures Verified 03/02/19 07:52 PMH/Surg Hx/FS Hx/Imm Hx Endocrine History: Dyslipidemia Respiratory History: COPD, Asthma GI/ History: Gastroesophageal Reflux - Surgical History Surgical History: Yes Surgery Procedure, Year, and Place: appy. partial hysterectomy. umbilical hernia 1989 - Family History Known Family History: Positive: Cardiac Disease, Hypertension, Diabetes, Other - diverticulitis, sister w/ CVAs Family History: cancer, diverticulitis - Social History Occupation: Retired Lives: With Family Alcohol Use: None Substance Use Type: None Smoking Status (MU): Light Every Day Tobacco Smoker Type: Cigarettes Amount Used/How Often: ~1/4 PPD Length of Time of Smoking/Using Tobacco: Since Age 21 Have You Smoked in the Last Year: Yes When Did the Patient Quit Smoking/Using Tobacco: TWO WEEKS AGO Household Exposure Type: Cigarettes Cessation Counseling: Patient Advised to Stop - Immunization History Most Recent Influenza Vaccination: 2017 Most Recent Tetanus Shot: unknown Review of Systems All Other Systems Reviewed And Are Negative: Yes Constitutional: Positive: Fever, Chills, Fatigue Eyes: Positive: Photophobia ENT: Positive: Sore Throat, Nasal Discharge, Sinus Congestion, Sinus Pain/ Tenderness Respiratory: Positive: Shortness Of Breath - wheezing, Cough Neurological: Positive: Headache Is Patient Immunocompromised?: No Physical Exam Triage Information Reviewed: Yes Appearance: Well-Nourished, Ill-Appearing, Pain Distress Vital Signs: Initial Vital Signs Temp 98.8 F 03/02/19 07:50 Pulse 93 03/02/19 07:50 Resp 18 03/02/19 07:50 BP 122/89 03/02/19 07:50 Pulse Ox 97 03/02/19 07:50 Vital Signs Reviewed: Yes Eyes: Positive: Conjunctiva Clear ENT: Positive: Pharynx normal, Nasal congestion - with allergic changes, TMs normal Neck exam: Normal Respiratory: Positive: Wheezing - expiratory wheezes with coughing Cardiovascular Exam: Normal Musculoskeletal Exam: Normal Neurological Exam: Normal Psychological Exam: Normal Skin Exam: Normal Headache Course/Dx - Differential Dx/Diagnosis Differential Diagnosis/HQI/PQRI: Migraine, Sinus Headache, Tension Headache, Viral Syndrome Provider Diagnosis: Migraine with status migrainosus, Acute frontal sinusitis, Allergic rhinitis Discharge ED - Sign-Out/Discharge Documenting (check all that apply): Patient Departure All imaging exams completed and their final reports reviewed: No Studies - Discharge Plan Condition: Stable Disposition: HOME Prescriptions: DOXYcycline CAP(*) [DOXYcycline 100MG CAP(*)] 100 mg PO BID #20 cap Ketorolac TAB * [Toradol TAB *] 10 mg PO Q6H PRN #20 tab PRN Reason: Headache predniSONE [Prednisone 20 MG TAB] 20 mg PO DAILY #18 tablet Patient Education Materials: Migraine Headache (ED), Sinusitis (ED), Bronchospasm (ED), Ketorolac (By injection) Referrals: Shiv Chen PA [Primary Care Provider] - 3 Days (recheck on headache. ) Additional Instructions: NEILMED SINUS RINSE: CHECK OUT AT [employer] Saline nasal wash helps with mucous, allergies and congestion. It can be used up to twice a day or only as needed. Use lukewarm tap water. It does not have to be sterilized or distilled water. Do 1/3 on each side and snort out of both nostrils. Repeat the process with 1/6 of the bottle on each side with snorting in between to finish the solution in the bottle Smoking Cessation Tricks. 1. Cut down by 1 cigarette per day every 2-3 days. Write the number of smokes for that day on the calendar. 2. Identify triggers to smoking: after meals, on the phone, in the car, with coffee, on breaks at work, etc. 3. Formulate a plan with a behavior to replace the smoking. Fireballs in the car , doodle pad on the phone, flavored creamer for the coffee, go for a walk after a meal or on break at work. 4. For stress smokes do deep breathing relaxation. Breath deep in through the nose hold the breath in for a few seconds then breath out slowly through the mouth. Follow up with your dentist on the TMJ dysfunction. - Billing Disposition and Condition Condition: STABLE Disposition: Home
== END 2019-03-02 08:50 | disposition home or self-care (01) ==
LOC: UCCORT 07:38
DX: J01.10 Acute frontal sinusitis, unspecified (principal); G43.901 Migraine, unspecified, not intractable, with status migrainosus; J30.9 Allergic rhinitis, unspecified; J02.9 Acute pharyngitis, unspecified; J44.9 Chronic obstructive pulmonary disease, unspecified; F17.210 Nicotine dependence, cigarettes, uncomplicated; Z91.040 Latex allergy status; Z88.5 Allergy status to narcotic agent
CPT/HCPCS: 96372; 99212; A9270-GY; G0463; J1885; J7512

== ENCOUNTER 2019-04-26 09:52 | Emergency (ER) | payer OTHER ==
--- OUTSIDE RECORDS SUMMARY | 2019-04-26 10:58 | XMS REPORT | Continuity of Care Document ---
:1955 External Reference #:[id number] Author Name Remi Nation M.D. Address [address] [facility] [address] [place] [address] Care Team Providers Name Role Phone Charanjit Chen PA - Physician Care Team Information Hardware Engineering Manager Geography Faculty Member Emily Mackey MD - Family Care Team Information Hardware Engineering Manager Medicine Problems Active Problems Provider Date Chronic [...] Use Denies Drug Use Smoking Status Reviewed: 04/22/19 Patient is a current 10 or less a day smoker, smokes every day Allergies, Adverse Reactions, Alerts Active Allergies Reaction Severity Comments Date Dog Dander 01/12/2014 Codeine 01/12/2014 Tramadol 01/12/2014 Latex 01/12/2014 Medications Active Medications SIG Qnty Indications Ordering Date Provider Trospium Chloride 1 by mouth twice 60tabs Chapis, 03/12/2019 a day Abhishek Khalil 20mg Tablets Lisinopril 1 by mouth every 30tabs I10 [place], 09/12/2018 10mg day Preston Gonzalez M.D., Tablets [...] by mouth every Unknown 20mg Tablets day History Medications Myrbetriq 1 by mouth every 30tabs Remi Nation, 01/13/2019 - 50mg day Apolinar.DLynn 04/22/2019 Tablets ER 24HR Immunizations Description No Information Available Vital Signs Date Vital Result Comment 04/22/2019 11:31am BP Systolic 136 mmHg BP Diastolic 88 mmHg Body Temperature 99.3 F Heart Rate 90 /min Respiratory Rate 17 /min Height 66 inches 5'6" Weight 181.00 lb Pain Level 0 BMI (Body Mass Index) 29.2 kg/m2 BSA (Body Surface Area) 1.92 m2 [place] body weight in kilograms 59 kg O2 % BldC Oximetry 96 % 02/03/2019 1:25pm BP Systolic 156 mmHg BP Diastolic 95 mmHg Body Temperature 98.3 F Heart Rate 75 /min Respiratory Rate 19 /min Height 66 inches 5'6" Weight 177.00 lb Pain Level 4 catch in her left side BMI (Body Mass Index) 28.6 kg/m2 BSA (Body Surface Area) 1.90 m2 [place] body weight in kilograms 59 kg Results Test Acquired Date Facility Test Result H/L Range Note Urine Dipstick 02/03/2019 [facility] Ua Color yellow Yellow Ua Clarity clear Clear Ua Leuko neg Negative Ua Nitrite neg Negative Ua Urobilinogen 0.2 0.2 - 1.0 E.U./dL Ua Protein neg Negative Ua PH 6.0 Low 6.5-7.5 Ua Blood neg Negative Ua Specific [place] 1.010 1.010-1.030 Ua Ketones neg Negative Ua Bilirubin neg Negative Ua Glucose neg Negative Urine Culture 01/13/2019 [facility] Urine Culture MIXED URETHRAL F 1, [address] <SEE NOTE> [place] [address] [phone] Quantity 10,000 - 50,000 <SEE NOTE> 3 Ua RFX Micro & Culture 01/13/2019 [facility] Urine Color YELLOW Yellow II [address] [place] [address] [phone] Urine Clarity CLEAR Clear Urine Glucose - Dipstick NEGATIVE mg/dL Negative Urine Bilirubin - Dipstick NEGATIVE Negative Urine Ketone NEGATIVE mg/dL Negative Urine Specific [place] 1.015 Normal 1.010-1.030 Urine Blood SMALL Abnormal [...] Urine Epithelial Cells FEW /lpf None Seen 1 N39.0 2 MIXED URETHRAL [place]Y 3 10,000 - 50,000 CFU/mL 4 URINE, CLEAN CATCH Procedures Date Code Description Status 02/03/2019 67302 Cystoscopy Completed 01/13/2019 19886 Measurement Post Voiding Residual Urine By Completed Ultrasound,Non-Imaging 09/26/2017 [id number] Colonoscopy Completed 08/13/2014 [id number] Colonoscopy Completed 07/20/2011 [id number] Colonoscopy Completed 06/15/2003 [id number] Colonoscopy Completed Medical Devices Description No Information Available Encounters Type Date Location Provider Dx Diagnosis Office Visit 04/22/2019 11:30a Urology Remi Nation M.D. N20.0 Calculus of kidney N39.46 Mixed incontinence Office Visit 02/03/2019 1:15p Urology Remi Nation N39.46 Mixed incontinence M.DLynn Office Visit 01/13/2019 10:15a Urology Remi Nation N39.46 Mixed incontinence M.DLynn N20.0 Calculus of kidney Assessments Date Code Description Provider 04/22/2019 N20.0 Calculus of kidney Remi Nation M.D. 04/22/2019 N39.46 Mixed incontinence Remi Nation M.D. 02/03/2019 N39.46 Mixed incontinence Remi Nation M.D. 01/13/2019 N39.46 Mixed incontinence Remi Nation M.D. 01/13/2019 N20.0 Calculus of kidney Remi Nation M.D. Plan of Treatment Future Appointment(s):04/22/2020 9:00 am - Remi Nation M.D. at Urology Functional Status Description No Information Available Mental Status Description No Information Available Referrals Description No Information Available
[2019-04-26 11:53] LABS: Influenza A Molecular Negative (Negative); Influenza B Molecular Negative (Negative)
--- NOTE | 2019-04-26 12:08 | UC ---
Respiratory Complaint HPI - HPI Summary HPI Summary: Per gluer and slicer hand: "cough, tightness in chest, body aches, fever" -here w/ her who is being seen, testing + for flu & pneumonia. + asthma, reporrts complianec w/ inhalers -has alb neb but has not used during this illness. doesnt have any med, but has neb machine -sx also staretd as GAMBLE for her prior to 11/21. her dad recntly dc'd w/ pneumoni anad hse was exposed to ot. she states that her chest feels liek when she had pneumonia in the past -no f/c. no rash. -denies production - History of Current Complaint Chief Complaint: UCRespiratory Stated Complaint: GAMBLE,COUGH,FEVER Time Seen by Provider: 04/26/19 11:44 Hx Last Menstrual Period: n/a Pain Intensity: 5 - Allergies/Home Medications Allergies/Adverse Reactions: Allergies Allergy/AdvReac Type Severity Reaction Status Date / Time latex Allergy Unknown Unknown Verified 04/26/19 11:17 Reaction Details tramadol Allergy Unknown seizures Verified 04/26/19 11:17 Home Medications: Home Medications Esomeprazole(NF) [Nexium(NF)] 40 mg PO DAILY 12/20/15 [History Confirmed ] Topiramate TAB(*) [Topamax 25 MG tab] 100 mg PO QAM 12/20/15 [History Confirmed 04/26/19] Spiriva HANDIHALER DEVICE (NF) [Tiotropium Inhaler DEVICE (NF)] 1 inh DAILY 08/13 [History Confirmed 04/26/19] Atorvastatin* [Lipitor 10 MG*] 10 mg PO DAILY 08/27/18 [History Confirmed ] Albuterol 2.5MG/3ML (0.083%)* [Ventolin 2.5 MG/3 ML NEB.YENI*] 2.5 mg INH Q4H #1 neb.yeni 04/26/19 [Rx] Ibuprofen 800 mg PO Q12HR 04/26/19 [History Confirmed 04/26/19] Lisinopril [Zestril] 10 mg PO DAILY 04/26/19 [History Confirmed 04/26/19] Naproxen [Naproxen 500 mg tab] 500 mg PO ONCE 04/26/19 [History Confirmed ] Polyethylene Glycol 3350 [Miralax] 1 gm PO DAILY 04/26/19 [History Confirmed ] Trospium Chloride [Trospium Chloride ER] 20 mg PO DAILY 04/26/19 [History Confirmed 04/26/19] PMH/Surg Hx/FS Hx/Imm Hx Cardiovascular History: Hypertension Respiratory History: Asthma - Surgical History Surgical History: Yes Surgery Procedure, Year, and Place: appy. partial hysterectomy. umbilical hernia 1989 - Family History Known Family History: Positive: Cardiac Disease, Hypertension, Diabetes, Other - diverticulitis, sister w/ CVAs Family History: cancer, diverticulitis - Social History Alcohol Use: Rare Substance Use Type: None Smoking Status (MU): Light Every Day Tobacco Smoker Type: Cigarettes Amount Used/How Often: ~1/4 PPD Length of Time of Smoking/Using Tobacco: Since Age 21 Have You Smoked in the Last Year: Yes When Did the Patient Quit Smoking/Using Tobacco: TWO WEEKS AGO Household Exposure Type: Cigarettes - Immunization History Most Recent Influenza Vaccination: 2017 Most Recent Tetanus Shot: unknown Review of Systems All Other Systems Reviewed And Are Negative: Yes Constitutional: Positive: Fever, Fatigue Skin: Positive: Negative. Negative: Rash Eyes: Positive: Negative ENT: Positive: Negative. Negative: Sore Throat, Ear Ache Respiratory: Positive: Cough Cardiovascular: Positive: Negative. Negative: Palpitations, Chest Pain Genitourinary: Positive: Negative Motor: Positive: Negative Neurovascular: Positive: Negative Musculoskeletal: Positive: Negative Neurological/Mental Status: Positive: Negative Psychological: Positive: Negative Is Patient Immunocompromised?: No Physical Exam Appearance: Well-Appearing, No Pain Distress, Well-Nourished - no cough at all during the visit. Vital Signs: Initial Vital Signs Temp 99.9 F 04/26/19 11:09 Pulse 88 04/26/19 11:09 Resp 18 04/26/19 11:09 BP 134/84 04/26/19 11:09 Pulse Ox 99 04/26/19 11:09 Eye Exam: Normal ENT Exam: Normal ENT: Positive: Pharynx normal, TMs normal, Uvula midline. Negative: Nasal congestion, Nasal drainage, TM bulging, TM dull, TM red, Sinus tenderness Neck exam: Normal Neck: Positive: Supple, Nontender, No Lymphadenopathy Respiratory Exam: Normal Respiratory: Positive: Lungs clear, No respiratory distress, No accessory muscle use, Decreased breath sounds - slight thorughout.. Negative: Crackles, Rhonchi - iniial ? mild RLL rhokhi that clear s/p forced cough, Stridor, Wheezing Cardiovascular Exam: Normal Cardiovascular: Positive: RRR Abdominal Exam: Normal Abdomen Description: Positive: Nontender, Soft Musculoskeletal Exam: Normal Neurological Exam: Normal Psychological Exam: Normal Skin Exam: Normal Respiratory Course/Dx - Course Course Of Treatment: CXR neg likely viral bronchitis vs asthmatic bronchitis. Enc to use alb neb Q 4-6 hrs. -increase fluids and rest -f/u sooner if sx increase or change or worsen. - Differential Dx/Diagnosis Differential Diagnosis/HQI/PQRI: Asthma, Bronchitis, Influenza, Laryngitis Provider Diagnosis: Bronchitis, Asthmatic bronchitis Discharge ED - Sign-Out/Discharge Documenting (check all that apply): Patient Departure All imaging exams completed and their final reports reviewed: No Studies - Discharge Plan Condition: Stable Disposition: HOME Prescriptions: Albuterol 2.5MG/3ML (0.083%)* [Ventolin 2.5 MG/3 ML NEB.YENI*] 2.5 mg INH Q4H #1 neb.yeni Patient Education Materials: Acute Bronchitis (ED) Referrals: Shiv Chen PA [Primary Care Provider] - 5 Days Additional Instructions: Drink plenty of fluids and get plenty of rest. You can take tylenol/ibuprofen for discomfort. You should follow up sooner if your symptoms increase or perist. make sure to use thealbuterol nebulizer every 4-6 hrs as needed for cough/shortness of breath. Your chest xray does not show any acute disease according to the radiologist. - Billing Disposition and Condition Condition: STABLE Disposition: Home
[2019-04-26] MEDS ORDERED: Ibuprofen TAB* 600 MG PO ONE (12:24)
[2019-04-26] MEDS ORDERED: Ibuprofen TAB* 400 MG PO ONE (12:28)
[2019-04-26 13:11] VITALS: BP 143/85
== END 2019-04-26 14:05 | disposition home or self-care (01) ==
LOC: UCCORT 09:52
DX: J45.909 Unspecified asthma, uncomplicated (principal); I10 Essential (primary) hypertension; F17.210 Nicotine dependence, cigarettes, uncomplicated; Z91.040 Latex allergy status; Z88.5 Allergy status to narcotic agent; Z79.899 Other long term (current) drug therapy
CPT/HCPCS: 71046; 99212; A9270-GY; G0463

== ENCOUNTER 2019-05-04 15:32 | Emergency (ER) | payer OTHER ==
[2019-05-04 16:54] VITALS: BP 133/85
--- NOTE | 2019-05-04 17:04 | UC ---
Respiratory Complaint HPI - HPI Summary HPI Summary: 63-year-old female who was seen here on March and diagnosed with bronchitis. She was given an albuterol inhaler which has helped her lung situation however now she has sinus pressure, postnasal drainage and continued cough. - History of Current Complaint Chief Complaint: UCGeneralIllness Stated Complaint: COUGH/COLD Time Seen by Provider: 05/04/19 16:49 Hx Obtained From: Patient Hx Last Menstrual Period: n/a ?: No Onset/Duration: Gradual Onset, Lasting Weeks Timing: Constant Severity Initially: Mild Severity Currently: Mild Pain Intensity: 0 Character: Cough: Nonproductive - Patient states that her cough is much better than it was Aggravating Factors: Nothing Associated Signs And Symptoms: Positive: URI, Nasal Congestion, Sinus Discomfort - Allergies/Home Medications Allergies/Adverse Reactions: Allergies Allergy/AdvReac Type Severity Reaction Status Date / Time latex Allergy Unknown Unknown Verified 05/04/19 16:54 Reaction Details tramadol Allergy Unknown seizures Verified 05/04/19 16:54 Home Medications: Home Medications Esomeprazole(NF) [Nexium(NF)] 40 mg PO DAILY 12/20/15 [History Confirmed ] Topiramate TAB(*) [Topamax 25 MG tab] 125 mg PO QAM 12/20/15 [History Confirmed 05/04/19] Spiriva HANDIHALER DEVICE (NF) [Tiotropium Inhaler DEVICE (NF)] 1 inh DAILY 08/13 [History Confirmed 05/04/19] Atorvastatin* [Lipitor 10 MG*] 10 mg PO DAILY 08/27/18 [History Confirmed ] Albuterol 2.5MG/3ML (0.083%)* [Ventolin 2.5 MG/3 ML NEB.YENI*] 2.5 mg INH Q4H #1 neb.yeni 04/26/19 [Rx Confirmed 05/04/19] Ibuprofen 800 mg PO Q12HR 04/26/19 [History Confirmed 05/04/19] Lisinopril [Zestril] 10 mg PO DAILY 04/26/19 [History Confirmed 05/04/19] Naproxen [Naproxen 500 mg tab] 500 mg PO BID 04/26/19 [History Confirmed ] Polyethylene Glycol 3350 [Miralax] 1 gm PO DAILY 04/26/19 [History Confirmed 10/15] Trospium Chloride [Trospium Chloride ER] 20 mg PO BID 04/26/19 [History Confirmed 05/04/19] Albuterol HFA INHALER* [Ventolin HFA Inhaler*] 2 puff INH Q4H PRN 05/04/19 [ History Confirmed 05/04/19] Amoxicillin PO (*) [Amoxicillin 875 MG (*)] 875 mg PO BID 10 Days #20 tab [Rx] Benzonatate CAP* [Tessalon 100 MG CAP*] 100 mg PO TID PRN #30 cap 05/04/19 [Rx] PMH/Surg Hx/FS Hx/Imm Hx Previously Healthy: Yes Endocrine History: Dyslipidemia Respiratory History: COPD, Asthma, Bronchitis - Surgical History Surgical History: Yes Surgery Procedure, Year, and Place: appy. partial hysterectomy. umbilical hernia 1989 - Family History Known Family History: Positive: Cardiac Disease, Hypertension, Diabetes, Other - diverticulitis, sister w/ CVAs Family History: cancer, diverticulitis - Social History Lives: With Family Alcohol Use: Rare Substance Use Type: None Smoking Status (MU): Light Every Day Tobacco Smoker Type: Cigarettes Amount Used/How Often: 1/2 ppd Length of Time of Smoking/Using Tobacco: Since Age 21 Have You Smoked in the Last Year: Yes When Did the Patient Quit Smoking/Using Tobacco: TWO WEEKS AGO Household Exposure Type: Cigarettes - Immunization History Most Recent Influenza Vaccination: 2017 Most Recent Tetanus Shot: unknown Review of Systems All Other Systems Reviewed And Are Negative: Yes ENT: Positive: Nasal Discharge, Sinus Congestion, Sinus Pain/Tenderness Respiratory: Positive: Cough - Non-Productive cough Is Patient Immunocompromised?: No Physical Exam Triage Information Reviewed: Yes Appearance: Well-Appearing, No Pain Distress, Well-Nourished Vital Signs: Initial Vital Signs Temp 98.5 F 05/04/19 16:49 Pulse 91 05/04/19 16:49 Resp 18 05/04/19 16:49 BP 133/85 05/04/19 16:49 Pulse Ox 97 05/04/19 16:49 Vital Signs Reviewed: Yes Eyes: Positive: Conjunctiva Clear ENT: Positive: Pharynx normal - Yellow postnasal drainage, Nasal congestion, Nasal drainage - Yellow nasal coryza the left side is worse than the right, TMs normal, Sinus tenderness - Tenderness over the bilateral maxillary sinuses, Uvula midline Neck: Positive: Supple, Nontender, No Lymphadenopathy Respiratory: Positive: Lungs clear, Normal breath sounds, No respiratory distress, No accessory muscle use Cardiovascular: Positive: RRR, No Murmur, Pulses Normal, Brisk Capillary Refill Musculoskeletal Exam: Normal Neurological Exam: Normal Psychological Exam: Normal Skin Exam: Normal Respiratory Course/Dx - Course Course Of Treatment: The patient is comfortable here and in no distress. She wanted a prescription for cough medicine therefore benzonatate capsules were given. At this point time she also has a sinusitis. She is to continue her albuterol inhaler 2 puffs every 4-6 hours as needed for tight cough or wheezing - Differential Dx/Diagnosis Provider Diagnosis: Sinusitis Discharge ED - Sign-Out/Discharge Documenting (check all that apply): Patient Departure All imaging exams completed and their final reports reviewed: No Studies - Discharge Plan Condition: Good Disposition: HOME Prescriptions: Amoxicillin PO (*) [Amoxicillin 875 MG (*)] 875 mg PO BID 10 Days #20 tab Benzonatate CAP* [Tessalon 100 MG CAP*] 100 mg PO TID PRN #30 cap PRN Reason: Cough Patient Education Materials: Sinusitis (ED) Referrals: Shiv Chen PA [Primary Care Provider] - Additional Instructions: Increase fluids, [id number] cold meds as directed. Follow up with your primary care provider as scheduled for a recheck and especially if no improvement. Stop smoking - Billing Disposition and Condition Condition: GOOD Disposition: Home
== END 2019-05-04 17:15 | disposition home or self-care (01) ==
LOC: UCCORT 15:32
DX: J32.9 Chronic sinusitis, unspecified (principal); E78.5 Hyperlipidemia, unspecified; J44.9 Chronic obstructive pulmonary disease, unspecified; F17.210 Nicotine dependence, cigarettes, uncomplicated; Z79.899 Other long term (current) drug therapy; Z91.040 Latex allergy status; Z88.5 Allergy status to narcotic agent
CPT/HCPCS: 99212; G0463